=== PATIENT | female | born 1945 | race Caucasian/White ===

== ENCOUNTER → 2023-05-06 11:15 | Outpatient (REF) | payer MEDICARE, OTHER, SELFPAY | LOC: PAVMRI 11:15 | PROVIDERS: ATTENDING PHYSICIAN Physical Medicine & Rehabilitation | DX: M54.12 Radiculopathy, cervical region (principal) | CPT/HCPCS: 72141 ==

== ENCOUNTER 2023-09-17 07:08 | Inpatient (IN) | payer MEDICARE, OTHER, SELFPAY ==
--- NOTE | 2023-08-27 12:06 | CM ---
Patient is scheduled for lumbar spine surgery on 09/17/23. Spoke with patient prior to surgery via telephone. Introduced role of the Orthopedic Navigator. Patient reports that she lives with her in a two story home. There are two steps to
enter and a flight of steps to the second floor. She currently functions independently. She has a cane and back brace. She has never had VN services.
Discussed orthopedic program, post surgical plans and tentative plan for patient to return home when directed by surgeon. Patient is in agreement with tentative plan and will have support from her when she goes home.
Plan: Orthopedic Navigator will remain available to assist with the care of patient and will reassess discharge needs after surgery.
[2023-09-04 12:57] VITALS: BMI 33.2
[2023-09-04 13:58] LABS: Hematocrit 42.1 % (37.0-47.0); Hemoglobin 14.7 g/dL (12.0-16.0); Mean Corp Hgb Conc. 34.9 g/dL (33.0-37.0); Mean Corpuscular Hgb 29.1 pg (27.0-31.0); Mean Corpuscular Volume 83.2 fL (81.0-99.0); Red Blood Cell Count 5.06 10^6/uL (4.20-5.40); Red Cell Dist. Width 14.2 % (11.5-14.5); White Blood Cell Count 11.1 10^3/uL (4.8-10.8)
[2023-09-04 14:19] LABS: ALT (SGPT) 22 U/L (0-35); AST (SGOT) 25 U/L (14-36); Albumin 4.7 g/dl (3.5-5.0); Alkaline Phosphatase 99 U/L (38-126); Blood Urea Nitrogen 25 mg/dl (7-17); Calcium 10.1 mg/dl (8.4-10.2); Carbon Dioxide 23 mmol/L (22-30); Chloride 109 mmol/L (98-107); Estimated Creatinine Clearance 50 ml/min; Glucose 96 mg/dl (70-99); Potassium 4.4 mmol/L (3.5-5.1); Sodium 142 mmol/L (135-145); Total Bilirubin 0.6 mg/dl (0.2-1.3); Total Protein 7.2 g/dl (6.3-8.2); eGFR > 60.00
--- NOTE | 2023-09-05 14:12 | PTCARENOTE ---
Patients 09/03 EKG abnormal- reviewed by Dr. Briceño, no additional interventions required
[2023-09-11 12:27] VITALS: BMI 33.2
[2023-09-17] VITALS (15 sets, daily range): BP systolic 127–178; BP diastolic 52–86; PULSE 89; O2SAT 94; BMI 33.2
[2023-09-17] MEDS: NORMOSOL-R 1000 IV ×2 (07:28→13:50)
[2023-09-17] MEDS: LYRICA 150 MG PO (07:37)
[2023-09-17] MEDS: TYLENOL 1000 MG PO ×3 (07:37→20:32)
[2023-09-17] MEDS: CELEBREX 200 MG PO (07:38)
[2023-09-17] MEDS: SKELAXIN 800 MG PO (07:38)
--- NOTE | 2023-09-17 08:57 | W.DS.TRANS ---
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
-
Discharge Instructions:
Sleep Apnea Risk Low
Discharge Diagnosis/Procedures Revision R L4-5 lami-psf
Diet As tolerated
Activity No strenuous activity
Driving Restrictions No driving
Instructions:
Stand-Alone Forms:
Changes to Home Medications: Yes
Discharge Medications:
DC Medications w/original date entered in [employer]
Probiotic 1 dose PO DAILY 09/11/23
biotin 1 dose PO DAILY 09/11/23
cyanocobalamin (vitamin B-12) 1 dose PO DAILY 09/11/23
mupirocin 2 % topical ointment 1 applic topical BID 09/11/23
omeprazole 10 mg capsule,delayed release 10 mg PO .EVERY OTHER DAY 09/11/23
vitamin E 1 dose PO DAILY 09/11/23
acetaminophen 325 mg tablet (Tylenol) 650 mg (2 x 325 mg) PO QID #0 tabs 09/17/23
cephalexin 500 mg capsule 500 mg PO QID infection prevention #20 caps 09/17/23
dexamethasone 4 mg tablet 4 mg PO BID inflammation #6 tabs 09/17/23
docusate sodium 100 mg capsule (Colace) 100 mg PO BID stool softner #1 cap 09/17/23
magnesium hydroxide 400 mg/5 mL oral suspension (Milk of Magnesia) 30 ml PO HS PRN Constipation #1 mL 09/17/23
ondansetron 4 mg disintegrating tablet 4 mg PO Q6H PRN n/v #20 tabs 09/17/23
oxycodone 5 mg tablet 5 mg PO Q6H PRN 1 tab moderate pain, 2 tabs severe pain #30 tabs 09/17/23
sennosides 8.6 mg tablet (Senokot) 17.2 mg (2 x 8.6 mg) PO BID laxative #2 tabs 09/17/23
tizanidine 2 mg capsule 2 mg PO BID PRN muscle pain/sleep #14 caps 09/17/23
Home Medication Changes
cephalexin 500 mg capsule 500 mg PO QID infection prevention #20 caps 09/17/23
dexamethasone 4 mg tablet 4 mg PO BID inflammation #6 tabs 09/17/23
ondansetron 4 mg disintegrating tablet 4 mg PO Q6H PRN n/v #20 tabs 09/17/23
oxycodone 5 mg tablet 5 mg PO Q6H PRN 1 tab moderate pain, 2 tabs severe pain #30 tabs 09/17/23
tizanidine 2 mg capsule 2 mg PO BID PRN muscle pain/sleep #14 caps 09/17/23
Pending Results: No
[2023-09-17] MEDS: ULTRAM PO ×2 (14:00)
--- NOTE | 2023-09-17 14:05 | PTCARENOTE ---
Pt received from the PACU via bed. Transport was w/o incident. Pt is Awake, Drowsy and easily oriented. Pt's HRR, lungs are clear, resp. easy. Pt with Lumbar back dressing C/D/I, no drainage noted at this time. VSS, Pt is afebrile. Pt instructed on
plan of care. Pt verbalized understanding of instructions. Call tyler is within reach.
[2023-09-17] MEDS: PROTONIX 40 MG PO (16:13)
[2023-09-17] MEDS: ULTRAM 50 MG PO ×2 (16:13→20:33)
[2023-09-17] MEDS: ANCEF 5 IV (18:31)
[2023-09-17] MEDS: SENOKOT 17.2 MG PO (20:30)
[2023-09-17] MEDS: FLORASTOR 250 MG PO (20:30)
[2023-09-17] MEDS: COLACE 100 MG PO (20:36)
[2023-09-18] MEDS: ULTRAM 50 MG PO ×2 (00:18→04:31)
[2023-09-18] MEDS: TYLENOL 1000 MG PO ×3 (02:26→20:28)
[2023-09-18] MEDS: ANCEF 5 IV (02:27)
[2023-09-18 02:53] VITALS: BP 142/80
[2023-09-18] MEDS: NORMOSOL-R 1000 IV (02:55)
[2023-09-18 05:27] LABS: Hemoglobin 12.7 g/dL (12.0-16.0); Mean Corp Hgb Conc. 34.3 g/dL (33.0-37.0); Mean Corpuscular Hgb 29.8 pg (27.0-31.0); Mean Corpuscular Volume 86.9 fL (81.0-99.0); Mean Platelet Volume 13.4 fL (7.4-10.4); Platelet Count 154 10^3/uL (130-400); Red Blood Cell Count 4.26 10^6/uL (4.20-5.40); Red Cell Dist. Width 14.1 % (11.5-14.5); White Blood Cell Count 21.2 10^3/uL (4.8-10.8)
[2023-09-18 05:49] LABS: Blood Urea Nitrogen 19 mg/dl (7-17); Calcium 8.7 mg/dl (8.4-10.2); Carbon Dioxide 23 mmol/L (22-30); Chloride 107 mmol/L (98-107); Estimated Creatinine Clearance 50 ml/min; Glucose 154 mg/dl (70-99); Potassium 4.6 mmol/L (3.5-5.1); Sodium 138 mmol/L (135-145); eGFR > 60.00
[2023-09-18 07:00] VITALS: BP 139/72
--- NOTE | 2023-09-18 07:46 | W.PN.SP ---
Today's Communication / Plan
-
s/p lami fusion
Doing well
PT
D/c
Subjective / Objective
Subjective Data
Legs better
Back is sore
Denies weakness
Objective Data
Vital Signs
Temp Pulse Resp BP Pulse Ox
98.0 F 76 14 139/72 95
09/18/23 07:00 09/18/23 07:00 09/18/23 07:00 09/18/23 07:00 09/18/23 07:00
Intake and Output
09/17/23 09/18/23 09/19/23
06:59 06:59 06:59
Intake Total 2720 / 2720
Balance 2720 / 2720
Intake:
Oral fluids 1320 / 1320
IV fluids (Total) 1400 / 1400
Normosol 200 / 200
Other:
Number of approximated MODERATE 5
amounts of urine
Lab Data
09/18/23 05:01
09/18/23 05:01
Physical Exam
-
Bilateral LE 4-5/5 limited bby pain
--- NOTE | 2023-09-18 08:27 | CM ---
Addendum entered by Love Rangel 09/18/23 11:55:
Navigator met again with patient and her family after patient attempted to stand with nursing staff. and son remain in agreement with SNF rehab; patient continues to be resistant. Patient is agreeable to remaining in the hospital at least
another night. will come in tomorrow morning at 8:30 for patient's therapy sessions.
Addendum entered by Love Rangel 09/18/23 11:36:
Patient worked with PT and OT. Recommendation is for SNF rehab. Met with patient to discuss. Patient very resistant and only wants to go home. Call placed to , Luis, to provide update and discuss discharge plans. and son, Bonifacio, came
to the hospital to meet with navigator and speak with patient. states that he works radio time salesperson and cannot be home with patient 16/09. He feels patient needs SNF. states that he wants patient to go to [facility]; no other options
provided. However patient remains resistant. Patient and family will continue to discuss; navigator to follow up later today.
Referral and completed PASRR sent to [facility] through [facility]. Spoke with Iveth in admissions who will review referral and follow up with navigator.
Original Note:
Reviewed chart and held rounds with PT, OT and RN. Also discussed with Dr. Tate. Patient had planned lumbar spine surgery on 09/16. Met with patient at bedside. Confirmed information previously obtained for assessment and discussed discharge plans.
Patient continues to plan to return home at discharge. She will have support from her when she goes home. Reviewed that she will work with PT/OT this morning and that discharge needs will depend on her functional status. Discussed possible
meed for VN services however patient does not feel she will need these services Will await PT/OT recommendations and proceed accordingly.
Patient has a cane at home.
Patient will use [facility] for discharge prescriptions.
[2023-09-18] MEDS: PROTONIX 40 MG PO (08:31)
[2023-09-18] MEDS: FLORASTOR 250 MG PO ×2 (08:31→20:28)
[2023-09-18] MEDS: COLACE 100 MG PO ×2 (08:31→20:28)
[2023-09-18] MEDS: NORMOSOL-R IV (08:32)
[2023-09-18] MEDS: SENOKOT 17.2 MG PO ×2 (08:32→20:28)
[2023-09-18] MEDS: ROXICODONE 5 MG PO ×2 (08:42→15:00)
[2023-09-18 09:40] VITALS: BP 155/77; PULSE 101; PULSE 86; O2SAT 94
[2023-09-18 11:00] VITALS: BP 148/72
--- NOTE | 2023-09-18 11:37 | W.PN.ORTHO ---
Today's Communication / Plan
-
Patient not stable functionally for d/c at this time. Will hold d/c and revisit with therapy in am. RW and assist
Assessment
.
Distal Motor Intact: Yes
Dressing:
Clean, dry and intact.
Assessment:
Likely osteoporotic given bone integrity intraoperatively-will check TSH and Vit D level and supplement if indicated
Plan
.
Surgery / Date: Revision decompression L4-[address] Tate 09/17/23
Activity:
Out of bed.
PT/OT
Discharge Plan: Home
Subjective
.
.:
Patient resting comfortably.
Vital Signs and Labs
.
Vital Signs and Labs:
Lab Results
09/18/23 05:01
09/18/23 05:01
Temp Pulse Resp BP Pulse Ox
97.8 F 80 16 148/72 94
09/18/23 11:00 09/18/23 11:00 09/18/23 11:00 09/18/23 11:00 09/18/23 11:00
Physical Exam
-
HEENT: No pallor, cyanosis, or jaundice. Throat clear.
NECK: Supple. No JVD.
RESPIRATORY: Lungs clear to auscultation.
CVS: S1, S2 normal. RRR.� No murmur, rub or gallop.
ABDOMEN: Soft, non-tender. No distension. BS+/normal.
EXTREMITIES: strength equal, no calf pain with palpation
PELLETIZER: AOx3. No focal deficits. manager specialty grossly intact
--- NOTE | 2023-09-18 11:47 | PTCARENOTE ---
Pt wanting to go home versus going to a rehab. Pt was not able to follow directions w/verbal cues earlier this morning. Pt is a max assist of 2 for transfers to the chair. Pt's son and wanted to witness Pt attempt to stand on her own. Nurse
and PCT stood next to Pt for safety and asked Pt to try and stand up on her own. Pt made 5 attempts to stand on her own and was not able to stand straight enough to take hold of the walker. Pt made a comment 'well I'm not going to use the walker at
home'. Pt settled back into chair with the call tyler within reach. Pt's and son are with Pt.
[2023-09-18 14:13] LABS: Vitamin D, 25-OH*** 24.7 ng/mL (30-80)
[2023-09-18] MEDS: TYLENOL PO (14:58)
[2023-09-18 15:15] VITALS: BP 126/72
[2023-09-18 23:19] VITALS: BP 166/81
[2023-09-19] VITALS (8 sets, daily range): BP systolic 132–171; BP diastolic 78–90; PULSE 83; O2SAT 94
[2023-09-19] MEDS: TYLENOL 1000 MG PO ×4 (02:20→19:41)
[2023-09-19] MEDS: FLORASTOR 250 MG PO ×3 (07:57→19:41)
[2023-09-19] MEDS: PROTONIX 40 MG PO (07:57)
[2023-09-19] MEDS: COLACE 100 MG PO ×2 (07:57→19:41)
[2023-09-19] MEDS: SENOKOT 17.2 MG PO (07:58)
[2023-09-19] MEDS: ROXICODONE 5 MG PO (07:59)
--- NOTE | 2023-09-19 08:12 | CM ---
Reviewed chart and held rounds with PT, OT and nursing. Met with patient at bedside and spoke with via telephone, does not plan to be present for therapy sessions this morning. Discussed discharge plans and patient is now in
agreement with SNF rehab. They continue to select [email or web address].
Message was received from Iveth in admissions who states that they are able to accept patient and will have a bed available for her on Friday, 09/19. manager [employer]iances on 09/19 should call the [facility] at [facility] ([phone]) and ask for the Nursing
Security Patrol Driver.
Report: [phone]

Medical necessity and transport forms completed and placed on chart.
--- NOTE | 2023-09-19 12:25 | W.PN.ORTHO ---
Today's Communication / Plan
-
Patient not stable functionally for d/c to home. Will require SNF prior to returning home at an independent level--RW and assist�
Assessment
.
Distal Motor Intact: Yes
Dressing:
Clean, dry and intact.
Assessment:
Likely osteoporotic given bone integrity intraoperatively, alopecia--TSH and Vit D level both low--check free T3-T4 and supplement D-Endocrine/PCP f/u OP
IAE-kukucptueno-paa low dose Amlodipine w/ parameter
Increased fatigue/somnolence -d/c Oxy in lieu of Ultram + Decadron
Plan
.
Surgery / Date: Revision decompression L4-[address] Tate 09/17/23
Activity:
Out of bed.
PT/OT
Discharge Plan: SNF
Subjective
.
.:
Patient resting comfortably.
Tired
Vital Signs and Labs
.
Vital Signs and Labs:
Lab Results
09/18/23 05:01
09/18/23 05:01
Temp Pulse Resp BP Pulse Ox
98.0 F 83 18 171/80 94
09/19/23 07:00 09/19/23 07:00 09/19/23 07:00 09/19/23 07:00 09/19/23 07:00
Physical Exam
-
HEENT: No pallor, cyanosis, or jaundice. Throat clear.
NECK: Supple. No JVD.
RESPIRATORY: Lungs clear to auscultation.
CVS: S1, S2 normal. RRR.� No murmur, rub or gallop.
ABDOMEN: Soft, non-tender. No distension. BS+/normal.
EXTREMITIES: strength equal, no calf pain with palpation
INSTALL AND REPAIR TECHNICIAN: AOx3. No focal deficits. banking analyst grossly intact
--- NOTE | 2023-09-19 12:41 | W.DS.TRANS ---
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
-
Discharge Instructions:
Sleep Apnea Risk Low
Discharge Diagnosis/Procedures Revision R L4-[address] Tate 09/17/23
Diet As tolerated
Activity No strenuous activity
Driving Restrictions No driving
Instructions:
Stand-Alone Forms: [facility].
Changes to Home Medications: Yes
Discharge Medications:
DC Medications w/original date entered in [employer]
Probiotic 1 dose PO DAILY Supplement 09/11/23
biotin 1 dose PO DAILY Supplement 09/11/23
cyanocobalamin (vitamin B-12) 1 dose PO DAILY Supplement 09/11/23
mupirocin 2 % topical ointment 1 applic topical BID Infection 09/11/23
omeprazole 10 mg capsule,delayed release 10 mg PO .EVERY OTHER DAY GERD 09/11/23
vitamin E 1 dose PO DAILY Supplement 09/11/23
acetaminophen 325 mg tablet (Tylenol) 650 mg (2 x 325 mg) PO QID #0 tabs 09/17/23
docusate sodium 100 mg capsule (Colace) 100 mg PO BID stool softner #1 cap 09/17/23
magnesium hydroxide 400 mg/5 mL oral suspension (Milk of Magnesia) 30 ml PO HS PRN Constipation #1 mL 09/17/23
sennosides 8.6 mg tablet (Senokot) 17.2 mg (2 x 8.6 mg) PO BID laxative #2 tabs 09/17/23
Saccharomyces boulardii 250 mg capsule (Florastor) 250 mg PO BID #1 cap 09/19/23
amlodipine 5 mg tablet 5 mg PO DAILY hypertension #1 tab 09/19/23
cephalexin 500 mg capsule 500 mg PO QID infection prevention #16 caps 09/19/23
dexamethasone 4 mg tablet 4 mg PO BID inflammation #6 tabs 09/19/23
ergocalciferol (vitamin D2) 50 mcg (2,000 unit) tablet 50 mcg PO DAILY #7 tabs 09/19/23
tramadol 50 mg tablet 50 mg PO Q6H PRN 1 tab moderate pain, 2 if severe #30 tabs 09/19/23
Home Medication Changes
amlodipine 5 mg tablet 5 mg PO DAILY hypertension #1 tab 09/19/23�
cephalexin 500 mg capsule 500 mg PO QID� infection prevention #16 caps 09/19/23�
dexamethasone 4 mg tablet 4 mg PO BID inflammation #6 tabs 09/19/23�
ergocalciferol (vitamin D2) 50 mcg (2,000 unit) tablet 50 mcg PO DAILY #7 tabs 09/19/23�
tramadol 50 mg tablet 50 mg PO Q6H PRN 1 tab moderate pain, 2 if severe #30 tabs 09/19/23�
Pending Results: Yes
Additional Pending Results:
Free T3, Free T4
[2023-09-19] MEDS: KEFLEX 500 MG PO ×3 (12:52→22:03)
[2023-09-19] MEDS: DECADRON 4 MG PO ×2 (12:52→19:41)
[2023-09-19] MEDS: NORVASC PO (12:53)
[2023-09-19 13:11] LABS: Free T3 2.94 pg/ml (2.77-5.27); Free T4 2.34 ng/dl (0.78-2.19)
[2023-09-19] MEDS: DRISDOL (VITAMIN D2) 50000 UNITS PO (14:19)
[2023-09-19] MEDS: SENOKOT PO (19:42)
[2023-09-20] MEDS: TYLENOL 1000 MG PO ×3 (02:04→13:50)
[2023-09-20] MEDS: COLACE PO (07:34)
[2023-09-20] MEDS: SENOKOT PO (07:34)
[2023-09-20 07:57] VITALS: BP 121/87
[2023-09-20] MEDS: PROTONIX 40 MG PO (08:11)
[2023-09-20] MEDS: FLORASTOR 250 MG PO ×2 (08:11)
[2023-09-20] MEDS: DECADRON 4 MG PO (08:11)
[2023-09-20] MEDS: DRISDOL (VITAMIN D2) 50000 UNITS PO (08:11)
[2023-09-20] MEDS: KEFLEX 500 MG PO ×3 (08:12→17:00)
[2023-09-20] MEDS: NORVASC 5 MG PO (08:14)
--- NOTE | 2023-09-20 13:31 | CM ---
Patient who is s/p Revision decompression L4-5. Room air. PT & OT Evals; requires assist of 2, recommend skilled rehab.
Spoke with nurse Florence Schmidt (ph [phone]); per Roxana no need to speak with want ad supervisor as she has the list of who is being accepted today and confirms this patient is on the list - assigned to room 406. The phone for report [phone], fax
[phone].
Spoke with patient's Luis; he agrees to [facility] SN[facility] today by ambulance. Noting IMM completed yesterday.
Plan [facility] today by ambulance.
[2023-09-20 15:05] VITALS: BP 140/65
== END 2023-09-20 18:26 | DRG 460 ==
LOC: 2 SOUTH 07:08
PROVIDERS: Physician Assistant Medical; ADMITTING PHYSICIAN Orthopaedic Surgery Orthopaedic Surgery of the Spine; FAMILY PHYSICIAN Internal Medicine
PROC: 00NY0ZZ Release Lumbar Spinal Cord, Open Approach (ICD-10-PCS; 2023-09-17)
PROC: 0SG00K1 Fusion of Lumbar Vertebral Joint with Nonautologous Tissue Substitute, Posterior Approach, Posterior Column, Open Approach (ICD-10-PCS; 2023-09-17)
DX: M43.16 Spondylolisthesis, lumbar region (principal); M48.061 Spinal stenosis, lumbar region without neurogenic claudication; M51.36 Other intervertebral disc degeneration, lumbar region; M81.0 Age-related osteoporosis without current pathological fracture; E78.00 Pure hypercholesterolemia, unspecified; K21.9 Gastro-esophageal reflux disease without esophagitis; M15.9 Polyosteoarthritis, unspecified; I10 Essential (primary) hypertension; E55.9 Vitamin D deficiency, unspecified; Z79.899 Other long term (current) drug therapy; R40.0 Somnolence; R53.83 Other fatigue; L65.9 Nonscarring hair loss, unspecified
CPT/HCPCS: 36415; 72100; 76000; 80048; 80053; 82306; 84439; 84443; 84481; 85027; 86850; 86900; 86901; 87070; 93005; 97110; 97116; 97163; 97167; 97530; 97535

== ENCOUNTER 2023-09-28 19:59 | Emergency (ER) | payer MEDICARE, OTHER, SELFPAY ==
[2023-09-28 20:08] VITALS: BP 124/52
--- NOTE | 2023-09-28 20:31 | ED.GENMED ---
History of Present Illness
<FELICIA Darby - Last Filed: 09/28/23 22:43>
General
Chief Complaint: Musculo-Skeletal Complaint
Source: patient and spouse
Exam Limitations: none
Time Seen by Provider: 09/28/23 20:04
History of Present Illness
History of Present Illness:
This is a 78 year old female that comes in with c/o left hip pain. and patient states that she has Sacral fusion on 09/16. Patient was at [facility] and discharge yesterday. states that she was getting PT and using a walker and doing
well. States that since she got home he feels that she is doing worse. States that at 5am she got herself to the BR and couldn't get back as she didn't have her walker. States that her Torso was laying on the bed and her legs were hanging off the
bed. States that he found her 3-4 hours later. States that once she was on her feet with the walker she drags her right leg which she had been doing since surgery and c/o left hip pain. States that she was on the sofa all day. Patient states that
it feels like a knife in her left hip but she has had this pain since she left [facility]. Denies any fever, chills, chest pain, SOB, abd pain, nausea, vomiting, diarrhea, headache, dizziness, urinary burning.
Past History
<FELICIA Darby - Last Filed: 09/28/23 22:43>
Past History
ED Past Medical History: GERD and Other (Sciatic, Tingling in arms and legs, )
ED Past Surgical History: Orthopedic (Sacral fusion)
Social History
Tobacco: Non-smoker
Alcohol: Daily (Wine 1 glasses with dinner)
Personal:
Living: with family
Review of Systems
<FELICIA Darby - Last Filed: 09/28/23 22:43>
Review of Systems
All Other Systems: ROS reviewed and negative except as documented in HPI and ROS
Constitutional: Reports no symptoms; Denies fever or chills
EENT: Reports no symptoms
Respiratory: Reports no symptoms; Denies cough or trouble breathing
Cardiac: Reports no symptoms; Denies chest pain
ABD/GI: Reports no symptoms; Denies abdominal pain, nausea, vomiting or diarrhea
: Reports no symptoms; Denies dysuria, frequency or urgency
Musculoskeletal: Reports joint pain (Left hip pain) and back pain (Low back pain since surgery)
Skin: Reports no symptoms
Neurological: Reports no symptoms; Denies dizzy or headache
Phy Exam
<FELICIA Darby - Last Filed: 09/28/23 22:43>
General Physical Exam
General Presentation: no apparent distress
General age: appears stated age
General Skin: warm and dry
General Habitus: elderly
General Mental: alert
General Hydration: dry mucous membranes
ENT Exam
ENT Exam: TM's normal, pharynx normal and neck supple
Eye Exam
Eye Exam: EOMI
Cardiovascular Exam
Cardiovascular Exam: regular rate/rhythm, no edema and normal peripheral pulses
Pulmonary Exam
Pulmonary Exam: lungs clear, no respiratory distress, no rales, chest non tender, no crackles, no rhonchi, no wheezing and no cough
Gastrointestinal Exam
Gastrointestinal Exam: normal bowel sounds, non tender, soft, no organomegaly, no pulsatile mass and non distended
Musculoskeletal Exam
Musculoskeletal Exam: no edema and other (Patient able to bend left knee with out pain. Negative for hip pain with knee bent. )
Skin Exam
Skin Exam: normal color, warm/dry, no petechia and other (Lower back incision line clean and dry. Negative for any redness)
Psychiatric Exam
Psychiatric Exam: normal mood/affect
Course
<FELICIA Darby - Last Filed: 09/28/23 22:43>
Orders/Labs/Results
Orders:
Orders
09/28/23 20:30
Hip, Left 2-3 Views [CR Hip - LT w/wo Pel 2-3 Vw*] Urgent
Comment:
Reason For Exam: hIP PAIN
Include a pelvis x-ray?: Yes
Lumbar Spine Complete, 4 View [CR Lumbar Spine Comp Min 4 Vw*] Urgent
Comment:
Reason For Exam: bACK PAIN, rECENT sACRAL FUSION 09/16
09/28/23 20:40
CRP [C-Reactive Protein] Urgent
Complete Blood Count/With Diff Urgent
Comprehensive Metabolic Panel Urgent
Sed Rate [Erythrocyte Sed Rate] Urgent
Abnormal Lab Results
09/28/23
20:40
WBC 18.6 H 10^3/uL
(4.8-10.8)
RBC 4.07 L 10^6/uL
(4.20-5.40)
Hct 35.9 L %
(37.0-47.0)
MPV 12.1 H fL
(7.4-10.4)
Abs Immat Gran (auto) 0.4 H 10^3/uL
(0-0.05)
Absolute Neuts (auto) 13.5 H 10^3/uL
(1.4-6.5)
Absolute Monos (auto) 2.5 H 10^3/uL
(0.1-0.6)
Immature Gran % 2.0 H %
(0-0.5)
Lymphocytes % 11.2 L %
(20.5-51.1)
Monocytes % 13.3 H %
(1.7-9.3)
ESR 32 H mm/hour
(0-20)
Chloride 109 H mmol/L
(98-107)
BUN 27 H mg/dl
(7-17)
Glucose 124 H mg/dl
(70-99)
C-Reactive Protein 70.60 H mg/L
(0.0-10.00)
Total Protein 5.4 L g/dl
(6.3-8.2)
Albumin 3.1 L g/dl
(3.5-5.0)
09/28/23 20:40
09/28/23 20:40
Leukocytosis (improved from prior labs), Dehydration. Glucose nonfasting. Total protein slightly low. Albumin slightly low. Sed rate elevated along with CRP.
Vital Signs
Initial and Last Documented VS:
Initial Vital Signs
Pulse Ox
97
09/28/23 20:06
Last Documented Vital Signs
Temp Pulse Resp BP Pulse Ox
98.1 F 71 16 124/52 97
09/28/23 20:08 09/28/23 20:08 09/28/23 20:08 09/28/23 20:08 09/28/23 20:08
<Jesus Vallejo MD - Last Filed: 09/28/23 22:03>
Orders/Labs/Results
Orders:
Orders
09/28/23 20:30
Hip, Left 2-3 Views [CR Hip - LT w/wo Pel 2-3 Vw*] Urgent
Comment:
Reason For Exam: hIP PAIN
Include a pelvis x-ray?: Yes
Lumbar Spine Complete, 4 View [CR Lumbar Spine Comp Min 4 Vw*] Urgent
Comment:
Reason For Exam: bACK PAIN, rECENT sACRAL FUSION 09/16
09/28/23 20:40
CRP [C-Reactive Protein] Urgent
Complete Blood Count/With Diff Urgent
Comprehensive Metabolic Panel Urgent
Sed Rate [Erythrocyte Sed Rate] Urgent
Abnormal Lab Results
09/28/23
20:40
WBC 18.6 H 10^3/uL
(4.8-10.8)
RBC 4.07 L 10^6/uL
(4.20-5.40)
Hct 35.9 L %
(37.0-47.0)
MPV 12.1 H fL
(7.4-10.4)
Abs Immat Gran (auto) 0.4 H 10^3/uL
(0-0.05)
Absolute Neuts (auto) 13.5 H 10^3/uL
(1.4-6.5)
Absolute Monos (auto) 2.5 H 10^3/uL
(0.1-0.6)
Immature Gran % 2.0 H %
(0-0.5)
Lymphocytes % 11.2 L %
(20.5-51.1)
Monocytes % 13.3 H %
(1.7-9.3)
ESR 32 H mm/hour
(0-20)
Chloride 109 H mmol/L
(98-107)
BUN 27 H mg/dl
(7-17)
Glucose 124 H mg/dl
(70-99)
C-Reactive Protein 70.60 H mg/L
(0.0-10.00)
Total Protein 5.4 L g/dl
(6.3-8.2)
Albumin 3.1 L g/dl
(3.5-5.0)
09/28/23 20:40
09/28/23 20:40
Vital Signs
Initial and Last Documented VS:
Initial Vital Signs
Pulse Ox
97
09/28/23 20:06
Last Documented Vital Signs
Temp Pulse Resp BP Pulse Ox
98.1 F 71 16 124/52 97
09/28/23 20:08 09/28/23 20:08 09/28/23 20:08 09/28/23 20:08 09/28/23 20:08
<FELICIA Darby - Last Filed: 09/28/23 22:43>
MDM/Problems Addressed
Differential Diagnosis Includes:
Musculoskeletal pain,
MDM/Problems Addressed:
This is a 78 year old female that comes in with c/o left hip [place]. Patient has surgery on 09/16 for sacral fusion. States that she was discharge from [facility] Yesterday and that she had left hip pain then. States that she took Tramadol at 7am, 12
noon and then 4 Tylenol at 7pm.
Will check labs, X-ray hip and low back.
Patient was seen by Dr. Vallejo. Got patient OOB and she was able to walk with a walker without difficulty. Have reviewed all labs and X-ray with family. Patient to follow up with the psychiatric specialist. Return with any concerns.
Chronic conditions affecting care:
NA
Acute Exacerbation and/or Progression of Chronic Illness:
Musculoskeletal pain
<FELICIA Darby - Last Filed: 09/28/23 22:43>
*Radiology
Radiology exam reviewed: radiology read reviewed (Lumbar spine- Recent lower lumbar spine sugery with intact metal hardware grossly unchanaged in position. Degenerative changes again seen. No findings to suggest recent lumbar vertebral compression
fractures. Hip X-ray= Likely diffuse osteopenia. Degenerative changes. No Findings to confirm recent ) and other (Hip X-ray cont- no findings to confirm recent cortical fracture. )
*Pulse Oximetry
Patient hypoxic: no
*EKG
Interpreted by ED Provider?: NA
Rate: EKG- N/A
*Chronometer Repairer Interpretation
Rate: Chronometer Repairer- N/A
*Critical Care Note
Total Time (30-74mins, 75-104mins- exclusive of procedures): Not Applicable
ED Attending Note
<FELICIA Darby - Last Filed: 09/28/23 22:43>
-
Portions of this chart may have been created with voice recognition software.� Occasional wrong word or��sound alike� substitutions may have occurred due to the inherent limitations of voice recognition software.
<Jesus Vallejo MD - Last Filed: 09/28/23 22:03>
ED Attending Note
Patient seen and examined by attending physician: Yes
I performed the substantive portion of visit, reviewed & personally made and approve the management plan that is documented in note by myself or KODY.: Yes
ED Attending Note:
78-year-old female with general weakness. Left rehab yesterday. She apparently left rehab slightly sooner than expected. History of a sacral fusion. No fever chills or other complaints. states she had difficulties getting around this
morning. Patient denies some of these issues.
She is nontoxic in no distress. Warm and dry. Abdomen is nontender. No respiratory distress. Good lower extremity strength bilateral. Good plantar dorsiflexion bilaterally. No pain with hip rotation bilaterally. No unusual leg swelling.
Well-healing incisions in the back.
X-rays are unremarkable. Labs show moderately elevated inflammatory markers and ongoing leukocytosis. However this was there postoperatively.
Clinically doubt an acute infectious issue. She does not describe fever or chills. The wound is healing well. She is neurologically stable. There has been some right leg weakness subjectively but this has been stable since the surgery. She has
no plantar or dorsiflexion weakness at this time. clearly would like her admitted back to rehab which the patient does not want to do. We will ambulate her here and see how she does. If she cannot ambulate well she will need to be
readmitted. If she does ambulate well this will be a joint decision with them whether to go home or follow-up closely
Discharge Plan
Departure
Patient Disposition: Home (Routine Discharge)
Date of Disposition: 09/28/23
Time of Disposition: 22:37
Patient with high blood pressure during this ER visit?: No
Condition: Good
Covid-19: Not Applicable
Discharge Problem:
Hip pain, left
Instructions: Hip Pain ED
Prescriptions:
No Action
omeprazole 10 mg Capsule,Delayed Release(Dr/Ec)
10 mg PO .EVERY OTHER DAY
mupirocin 2 % Ointment
1 applic TOPICAL BID
Probiotic
1 dose PO DAILY
biotin
1 dose PO DAILY
cyanocobalamin (vitamin B-12)
1 dose PO DAILY
vitamin E
1 dose PO DAILY
sennosides [Senokot] 8.6 mg tablet
17.2 mg PO BID Qty: 2 0RF
magnesium hydroxide [Milk of Magnesia] 400 mg/5 mL suspension
30 ml PO HS PRN (Reason: Constipation) Qty: 1 0RF
docusate sodium [Colace] 100 mg capsule
100 mg PO BID Qty: 1 0RF
acetaminophen [Tylenol] 325 mg Tablet
650 mg PO QID Qty: 0 0RF
cephalexin 500 mg capsule
500 mg PO QID Qty: 16 0RF
tramadol 50 mg tablet
50 mg PO Q6H PRN (Reason: 1 tab moderate pain, 2 if severe) Qty: 30 0RF
Rx Instructions:
ongoing therapy
Saccharomyces boulardii [Florastor] 250 mg capsule
250 mg PO BID Qty: 1 0RF
dexamethasone 4 mg tablet
4 mg PO BID Qty: 6 0RF
Rx Instructions:
take with food
post-op use only
--x 3 days only
ergocalciferol (vitamin D2) 50 mcg (2,000 unit) tablet
50 mcg PO WEEKLY Qty: 14 0RF
amlodipine 5 mg tablet
5 mg PO DAILY Qty: 30 2RF
Rx Instructions:
HOLD SYSTOLIC BLOOD PRESSURE <140
Referrals:
Dyana Cano MD [Family Provider] -
Activity Restrictions/Additional Instructions:
As discussed, your blood work shows that your WBC are elevated but they are coming down from prior labs. You area also dehydrated. Please increase your water intake to 8-8oz glasses daily. Your Inflammatory markers are elevated but this goes along
with surgery and age adjustment. Please follow up with the swine extension field specialist. Use your pain medication as directed at home. You pain may be due to your compensation with walking due to your back pain. IF YOU HAVE ANY OTHER CONCERNS PLEASE
RETURN TO THE EMERGENCY ROOM.
Interventions
Interventions:
*Risk Screen - Suicide Last Done: 09/28/23 20:09
*General Assessment Last Done: 09/28/23 20:09
*Neglect/Abuse Screening Last Done: 09/28/23 20:09
*ED COVID-19 Vaccine History Last Done: 09/28/23 20:08
ED-Musculoskeletal Assessment Last Done: 09/28/23 20:09
Discharge Date and Time
Print Language: SWEDISH
[2023-09-28 20:45] LABS: % Basophils 0.4 % (0-2); % Eosinophils 0.9 % (0-6); % Lymphocytes 11.2 % (20.5-51.1); % Monocytes 13.3 % (1.7-9.3); % Neutrophils 72.2 % (42.2-75.2); Absolute Basophils 0.1 10^3/uL (0-0.2); Absolute Eosinophils 0.2 10^3/uL (0-0.7); Absolute Immature Granulocytes 0.4 10^3/uL (0-0.05); Absolute Lymphocytes 2.1 10^3/uL (1.2-3.4); Absolute Monocytes 2.5 10^3/uL (0.1-0.6); Absolute Neutrophils 13.5 10^3/uL (1.4-6.5); Hematocrit 35.9 % (37.0-47.0); Hemoglobin 12.3 g/dL (12.0-16.0); Mean Corp Hgb Conc. 34.3 g/dL (33.0-37.0); Mean Corpuscular Hgb 30.2 pg (27.0-31.0); Mean Corpuscular Volume 88.2 fL (81.0-99.0); Mean Platelet Volume 12.1 fL (7.4-10.4); Nucleated Red Blood Cells % 0 %; Platelet Count 211 10^3/uL (130-400); Red Blood Cell Count 4.07 10^6/uL (4.20-5.40); Red Cell Dist. Width 14.4 % (11.5-14.5); White Blood Cell Count 18.6 10^3/uL (4.8-10.8)
[2023-09-28 21:07] LABS: Erythrocyte Sed Rate 32 mm/hour (0-20)
[2023-09-28 21:09] LABS: ALT (SGPT) 26 U/L (0-35); AST (SGOT) 31 U/L (14-36); Albumin 3.1 g/dl (3.5-5.0); Alkaline Phosphatase 91 U/L (38-126); Blood Urea Nitrogen 27 mg/dl (7-17); Calcium 9.2 mg/dl (8.4-10.2); Carbon Dioxide 24 mmol/L (22-30); Chloride 109 mmol/L (98-107); Glucose 124 mg/dl (70-99); Potassium 4.7 mmol/L (3.5-5.1); Sodium 136 mmol/L (135-145); Total Bilirubin 0.6 mg/dl (0.2-1.3); Total Protein 5.4 g/dl (6.3-8.2); eGFR > 60.00
[2023-09-28] MEDS: ULTRAM 50 MG PO (22:49)
== END 2023-09-28 23:15 | disposition home or self-care (01) ==
LOC: EMR 19:59
PROVIDERS: Clinical Nurse Specialist Family Health; EMERGENCY PHYSICIAN Emergency Medicine; FAMILY PHYSICIAN Internal Medicine
DX: M25.552 Pain in left hip (principal); K21.9 Gastro-esophageal reflux disease without esophagitis
CPT/HCPCS: 99283; 72110; 73502; 80053; 85025; 85652; 86140

== ENCOUNTER → 2024-07-29 14:42 | Outpatient (REF) | payer MEDICARE, OTHER, SELFPAY | LOC: EMG 14:42 | PROVIDERS: ATTENDING PHYSICIAN Internal Medicine | DX: R29.898 Other symptoms and signs involving the musculoskeletal system (principal); R20.0 Anesthesia of skin; M54.16 Radiculopathy, lumbar region | CPT/HCPCS: 95886; 95909 ==

== ENCOUNTER → 2024-09-17 13:16 | Outpatient (REF) | payer MEDICARE, OTHER, SELFPAY | LOC: PAVMRI 13:16 | PROVIDERS: ATTENDING PHYSICIAN Internal Medicine | DX: R29.898 Other symptoms and signs involving the musculoskeletal system (principal) | CPT/HCPCS: 70551 ==